=== PATIENT | male | born 1965 | race Caucasian/White ===

== ENCOUNTER 2016-07-24 17:36 | Inpatient (IN) | payer MEDICARE, MEDICAID ==
[~2016-07-24] VITALS: Ht 177.8 cm; Wt 90.0 kg
[2016-07-24] MEDS ORDERED: BUPR100 PO (17:56)
[2016-07-24] MEDS ORDERED: ADDE10 PO (17:56)
[2016-07-24] MEDS ORDERED: VENL-193 PO (17:56)
[2016-07-24] MEDS ORDERED: TRAZ150 PO (17:56)
[2016-07-24] MEDS ORDERED: LISI-661 PO (17:56)
[2016-07-24] MEDS ORDERED: QUET25TA PO (17:56)
[2016-07-24] MEDS ORDERED: ZOLP12.52 PO (17:56)
[2016-07-24] MEDS ORDERED: LOSA25TA21 PO (17:57)
[2016-07-24] MEDS ORDERED: RANI150T7 PO (17:57)
[2016-07-24 18:29] LABS: BASOPHILS % (AUTO) 0.5 % (0.0-2.0); EOSINOPHILS % (AUTO) 2.1 % (1.0-6.0); HEMATOCRIT 36.3 % (41-53); LYMPHOCYTES # (AUTO) 2.6 K/uL (1.0-4.8); LYMPHOCYTES % (AUTO) 32.9 % (22.0-44.0); MEAN CORPUSCULAR HEMOGLOBIN 30.4 pg (26.0-34.0); MEAN CORPUSCULAR HGB CONC 33.2 G/dL (31.0-37.0); MEAN CORPUSCULAR VOLUME 92 fL (80-100); MONOCYTES # (AUTO) 0.7 K/uL (0.1-1.0); MONOCYTES % (AUTO) 9.4 % (2.0-9.0); NEUTROPHILS # (AUTO) 4.4 K/uL (1.8-7.7); NEUTROPHILS % (AUTO) 55.1 % (40.0-70.0); PLATELET COUNT (AUTO) 270 K/uL (150-450); RED BLOOD CELL COUNT(AUTO) 3.97 MIL/uL (4.50-5.90); RED CELL DISTRIBUTION WIDTH 12.8 % (11.5-14.5)
[2016-07-24 18:40] LABS: ANION GAP 6 mmol/L (8-16); CARBON DIOXIDE 29 mmol/L (22-29); CHLORIDE 104 mmol/L (98-107); CREATININE 1.26 mg/dL (0.60-1.30); GLOMERULAR FILTR. RATE CALC 60 mL/min (>60); SODIUM SERUM 139 mmol/L (136-145); UREA NITROGEN, BLOOD 24 mg/dL (7-18)
[2016-07-24 18:46] LABS: ALANINE AMINOTRANSFERASE 44 U/L (12-78); ALBUMIN 4.1 g/dL (3.4-5.0); ASPARTATE AMINOTRANSFERASE 36 U/L (15-37); BILIRUBIN,TOTAL 0.6 mg/dL (0.1-1.0); TOTAL PROTEIN, SERUM 7.2 g/dL (6.4-8.2)
[2016-07-24] MEDS ORDERED: LORazepam 2 MG TABLET PO ONE (19:15)
[2016-07-24] MEDS ORDERED: VENL-67 PO (19:22)
[2016-07-24] MEDS ORDERED: DONNATAL/LIDOCAINE/MAALOX 55 ML BOTTLE PO ONE (19:30)
[2016-07-24] MEDS ORDERED: HALOPERIDOL 5 MG TABLET PO PRN (20:00)
[2016-07-24] MEDS ORDERED: ZOLPIDEM TARTRATE 10 MG TABLET PO PRN (20:00)
[2016-07-24 22:45] VITALS: BP 139/103
[2016-07-25 07:38] LABS: CHOL/HDL RATIO 3.3 (4.2-7.3); CREATINE KINASE MB 4.9 ng/mL (0-5); CREATINE KINASE, TOTAL 347 U/L (39-308); THYROID STIMULATING HORMONE 2.14 uIU/mL (0.36-3.74)
[2016-07-25 07:52] LABS: VITAMIN B12 LEVEL 675 pg/mL (211-911)
[2016-07-25] MEDS: RANITIDINE HCL 150 MG TABLET PO SCH (07:55)
[2016-07-25] MEDS: LOSARTAN POTASSIUM 50 MG TABLET PO SCH (07:55)
[2016-07-25] MEDS: LORazepam 2 MG TABLET PO PRN (07:58)
[2016-07-25] MEDS ORDERED: LISINOPRIL 10 MG TABLET PO SCH (09:00)
[2016-07-25] MEDS ORDERED: ACETAMINOPHEN 325 MG TABLET PO PRN (09:00)
[2016-07-25] MEDS ORDERED: IBUPROFEN 600 MG TABLET PO PRN (09:00)
[2016-07-25 09:20] VITALS: BP 134/98
[2016-07-25] MEDS: VENLAFAXINE HCL 150 MG ER CAPSULE PO SCH (11:39)
[2016-07-26 03:06] VITALS: BP 138/93
[2016-07-26 08:01] VITALS: BP 141/98
[2016-07-26] MEDS: VENLAFAXINE HCL 150 MG ER CAPSULE PO SCH (08:36)
[2016-07-26] MEDS: RANITIDINE HCL 150 MG TABLET PO SCH (08:36)
[2016-07-26] MEDS: LOSARTAN POTASSIUM 50 MG TABLET PO SCH (08:37)
[2016-07-26 09:01] VITALS: BP 116/76
[2016-07-26] MEDS ORDERED: CloNIDine HCL 0.1 MG TABLET PO PRN (11:30)
[2016-07-26 13:08] LABS: HEPATITIS Bs ANTIGEN SCREEN P Negative (Negative); HEPATITIS C AB SCREEN <0.1 s/co ratio (0.0-0.9)
[2016-07-26 16:34] VITALS: BP 116/74
[2016-07-26] MEDS ORDERED: PNEUMOCOCCAL VACCINE POLYVALENT 0.5 ML VIAL [PPSV23] IM ONE (19:45)
[2016-07-26] MEDS: LORazepam 2 MG TABLET PO PRN (20:25)
[2016-07-27 06:35] VITALS: BP 129/88
[2016-07-27 08:02] VITALS: BP 138/82
[2016-07-27] MEDS: VENLAFAXINE HCL 150 MG ER CAPSULE PO SCH (08:11)
[2016-07-27] MEDS: LOSARTAN POTASSIUM 50 MG TABLET PO SCH (08:11)
[2016-07-27] MEDS: RANITIDINE HCL 150 MG TABLET PO SCH (08:11)
[2016-07-27] MEDS: LORazepam 2 MG TABLET PO PRN ×2 (14:54→19:35)
[2016-07-27 19:57] VITALS: BP 125/98
[2016-07-27] MEDS ORDERED: LOPERAMIDE HCL 2 MG CAPSULE PO PRN (20:00)
[2016-07-28 04:30] VITALS: BP 128/86
[2016-07-28] MEDS: LORazepam 2 MG TABLET PO PRN (04:39)
[2016-07-28 08:00] VITALS: BP 127/84
[2016-07-28] MEDS: LOSARTAN POTASSIUM 50 MG TABLET PO SCH (08:29)
[2016-07-28] MEDS: VENLAFAXINE HCL 150 MG ER CAPSULE PO SCH (08:29)
[2016-07-28] MEDS: RANITIDINE HCL 150 MG TABLET PO SCH (08:29)
== END 2016-07-28 13:50 | disposition home or self-care (01) | DRG 885 ==
LOC: EMS 17:38 → EEVIPCON 17:38 → AHU 20:21 → 3EI 21:19 → 3EX 21:41
PROC: 5A09357 Assistance with Respiratory Ventilation, Less than 24 Consecutive Hours, Continuous Positive Airway Pressure (ICD-10-PCS; principal; 2016-07-27)
DX: F31.61 Bipolar disorder, current episode mixed, mild (principal); R45.851 Suicidal ideations; K21.9 Gastro-esophageal reflux disease without esophagitis; I10 Essential (primary) hypertension; F90.9 Attention-deficit hyperactivity disorder, unspecified type; M19.90 Unspecified osteoarthritis, unspecified site; F15.10 Other stimulant abuse, uncomplicated; G47.33 Obstructive sleep apnea (adult) (pediatric); G47.00 Insomnia, unspecified; D64.9 Anemia, unspecified; R19.7 Diarrhea, unspecified; Z28.21 Immunization not carried out because of patient refusal; Z91.5 Personal history of self-harm; Z59.0 Homelessness; Z79.899 Other long term (current) drug therapy; Z71.51 Drug abuse counseling and surveillance of drug abuser
CPT/HCPCS: 80074; 82306; 82607; 82746; 83036; 83735; 84439; 84443; 86592; 94660; 99285; G0480